=== PATIENT | male | born 1970 | race African-American/Black ===

== ENCOUNTER 2018-01-01 20:34 | Emergency (ER) | payer SELFPAY ==
[~2018-01-01] VITALS: Ht 180.3 cm; Wt 93.0 kg
[~2018-01-01 20:34] MED LIST: NO HOME MEDS
[2018-01-01 20:48] VITALS: BP 111/67
== END 2018-01-02 02:41 | disposition home or self-care (01) ==
LOC: ER 20:34
DX: H10.89 Other conjunctivitis (principal); F12.10 Cannabis abuse, uncomplicated; Z88.0 Allergy status to penicillin
CPT/HCPCS: 99282; 99283

== ENCOUNTER 2018-01-03 03:00 | Emergency (ER) | payer MEDICAID ==
[~2018-01-03] VITALS: Ht 182.9 cm; Wt 93.0 kg
[2018-01-03] MEDS ORDERED: KETOROLAC 60MG/2ML VIAL IM ONE (06:00)
[2018-01-03 09:05] VITALS: BP 131/77
== END 2018-01-03 09:13 | disposition home or self-care (01) ==
LOC: ER 03:00
DX: S46.912A Strain of unspecified muscle, fascia and tendon at shoulder and upper arm level, left arm, initial encounter (principal); X58.XXXA Exposure to other specified factors, initial encounter; Y93.9 Activity, unspecified; Y92.9 Unspecified place or not applicable; Z88.0 Allergy status to penicillin
CPT/HCPCS: 96372; 99283; J1885; Z7610

== ENCOUNTER 2018-01-11 21:46 | Emergency (ER) | payer MEDICAID ==
[~2018-01-11] VITALS: Ht 180.3 cm; Wt 93.0 kg
[2018-01-12] MEDS ORDERED: KETOROLAC 30MG/ML VIAL IM ONE (00:30)
[2018-01-12 01:02] VITALS: BP 136/80
== END 2018-01-12 01:03 | disposition home or self-care (01) ==
LOC: ER 21:46
DX: S16.1XXA Strain of muscle, fascia and tendon at neck level, initial encounter (principal); S46.912A Strain of unspecified muscle, fascia and tendon at shoulder and upper arm level, left arm, initial encounter; X58.XXXA Exposure to other specified factors, initial encounter; Y93.9 Activity, unspecified; Y92.9 Unspecified place or not applicable; Z88.0 Allergy status to penicillin; R03.0 Elevated blood-pressure reading, without diagnosis of hypertension
CPT/HCPCS: 96372; 99283; J1885; Z7610

== ENCOUNTER 2023-09-29 00:22 | Emergency (ER) | payer MEDICAID ==
[~2023-09-29] VITALS: Ht 182.9 cm; Wt 92.0 kg
[2023-09-29 00:31] VITALS: BP 143/90; PULSE 90; RESP 16; TEMP 98.4; O2SAT 97
== END 2023-09-29 03:07 | disposition home or self-care (01) ==
LOC: ER 00:22
DX: S62.304A Unspecified fracture of fourth metacarpal bone, right hand, initial encounter for closed fracture (principal); Z98.890 Other specified postprocedural states; Z88.0 Allergy status to penicillin; Y08.89XA Assault by other specified means, initial encounter; Y93.89 Activity, other specified; Y92.89 Other specified places as the place of occurrence of the external cause; Y99.8 Other external cause status
CPT/HCPCS: 29125; 73130; 99283